=== PATIENT | female | born 1955 | race Caucasian/White ===

== ENCOUNTER → 2021-03-28 | Outpatient (CLI) | payer OTHER | LOC: SJCVCIMAG 07:32 | PROVIDERS: ATTEND Internal Medicine | DX: R00.0 Tachycardia, unspecified (principal); E11.9 Type 2 diabetes mellitus without complications; R06.00 Dyspnea, unspecified; I25.10 Atherosclerotic heart disease of native coronary artery without angina pectoris; R07.89 Other chest pain; I10 Essential (primary) hypertension; Z87.891 Personal history of nicotine dependence; Z72.89 Other problems related to lifestyle; Z79.899 Other long term (current) drug therapy; Z88.5 Allergy status to narcotic agent; Z98.61 Coronary angioplasty status ==

== ENCOUNTER → 2021-04-05 | Outpatient (CLI) | payer OTHER | LOC: SJCVC 14:43 | PROVIDERS: ATTEND Internal Medicine | DX: R06.00 Dyspnea, unspecified (principal); I25.10 Atherosclerotic heart disease of native coronary artery without angina pectoris; E11.9 Type 2 diabetes mellitus without complications; G47.33 Obstructive sleep apnea (adult) (pediatric); I10 Essential (primary) hypertension; E66.9 Obesity, unspecified; E03.9 Hypothyroidism, unspecified; Z95.5 Presence of coronary angioplasty implant and graft; Z88.5 Allergy status to narcotic agent; Z88.8 Allergy status to other drugs, medicaments and biological substances; Z79.82 Long term (current) use of aspirin; Z79.84 Long term (current) use of oral hypoglycemic drugs; Z79.899 Other long term (current) drug therapy; Z87.891 Personal history of nicotine dependence ==

== ENCOUNTER → 2021-04-12 | Outpatient (CLI) | payer OTHER | LOC: RAD 07:54 | PROVIDERS: ATTEND Internal Medicine | DX: J84.89 Other specified interstitial pulmonary diseases (principal); R06.00 Dyspnea, unspecified ==

== ENCOUNTER → 2021-04-26 | Outpatient (CLI) | payer OTHER | LOC: CAT 07:57 | PROVIDERS: ATTEND Internal Medicine | DX: J84.9 Interstitial pulmonary disease, unspecified (principal); R91.1 Solitary pulmonary nodule ==

== ENCOUNTER → 2021-06-09 | Outpatient (CLI) | payer OTHER ==
[~2021-06-09] VITALS: Ht 162.6 cm; Wt 93.9 kg
[~2021-06-09] MED LIST: ANORO ELLIPTA1 EACH INH; COZAAR 25 MG TA25 M1 PO; IBU-200200 MG PO; LEVO-T50 MCG PO; METFORMIN HCL500 MG PO; NITROSTAT0.4 M1 SUBLING; OMEGA-3 FISH1200 MG PO; OMEPRAZOLE40 MG PO; PRALUENT P150 MG/1 M SUBQ; SERTRALINE HCL100 MG PO; ST. JOSEPH ASPI81 MG PO; SUPER THERAVIT1 EACH PO; TOPROL XL100 MG PO; VITAMIN C500 M2 PO; VITAMIN D325 MC3 PO
[2021-06-09 10:05] VITALS: BP 147/74
--- NOTE | 2021-06-25 14:55 | CATHLAB ---
[facility] [place] [address] INVASIVE PROCEDURE REPORT Name: JAD ATKINS Room #: ALETHA LOYD Carlos#: [id number] Admission: 06/09/21 Attend Phys: Urban Palacios Discharge: Date of : 59 Report #: [id number] THIS REPORT FOR: cc: Gunjan Cedeno Christine L. DO Lammoglia, Francisco J. MD ~ APPROVED REPORT Study performed: 06/09/2021 10:14:19 Patient Details Patient Status: Out-Patient Room #: The patient is a 66 year-old female Event Personnel Urban Palacios Wood Carving Lathe Operator, Sharda Moore RN RN, Evie Lambert RTR, RUSTY Scrub, Kelley Arias RTR Monitor Procedures Performed Art Access - R femoral artery* Left Heart Cath w/or w/o Coronaries [id number] [facility] Hemostasis w/ Mynx 13901 Initial Mod Sed Same Phys/QHP Gr [id number] 22009 Mod Sed Same Phys/QHP [id number], supervision of conscious sedation Indication Positive stress test, Chest pain Procedure Narrative The Right Groin^ was infiltrated with 1% Lidocaine subcutaneous anesthesia. A PINNACLE 4FR Sheath #[id number] sheath was inserted into the RFA^. Coronary angiography was performed using coronary diagnostic catheters. The right coronary system was accessed and visualized with a JR4 catheter. The left coronary system was accessed and visualized with a JL4 catheter. The left ventricle was accessed and visualized with a ANGLED PIGTAIL catheter. Hemostasis was obtained with manual pressure following sheath removal without any complications. The patient tolerated the procedure well and there were no complications associated with the procedure. There was no hematoma. Intraoperative Conscious Sedation Sedation start time: 11:28 Case end Time: 11:55 [facility] [address] [place] [address] INVASIVE PROCEDURE REPORT Name: JAD ATKINS Room #: [facility] Carlos#: [id number] Admission: 06/09/21 Attend Phys: Urban Araujo Discharge: Date of : 59 Report #: [id number] Versed 2 mg Fluoro Time: 2.17 minutes Dose: DAP 2547.10 cGycm2 335 mGy Contrast Type and Amount: Omnipaque 45 ml Coronary Angiography The patient's coronary anatomy is right dominant. Diagnostic Cath Left Main Large-caliber vessel normal origin bifurcates left into descending left circumflex. Mild plaquing is noted no obstructive lesions are present. There is some proximal tapering noted of less than 30% LAD Moderate caliber type III vessel which courses in the interventricular sulcus. Before the origin of the first diagonal branches there is a stent that appears to have a 25 to 30% restenosis along its entire course. It is not flow-limiting. The vessel continues on giving rise to diagonal which is moderate in caliber with luminal irregularities of less than 30% noted. And LAD proper continues in the anterior to his ventricular sulcus tapering with moderate to mild irregularities bifurcating is a small bifurcating vessel in the posterior inferior wall of the left ventricle Diagonal 1 Small to moderate caliber vessel with irregularities present throughout its course less than 30% Circumflex Moderate caliber nondominant vessel gives rise early first marginal branch and then continues on the second marginal branch with there is a stent which appears to be widely patent. Beyond the stent there is irregularities of less than 30% but the first marginal branch is moderate in caliber with luminal irregularities noted which are not hemodynamically significant. The vessel and continues on circumflex proper posteriorly terminates posterior aspect of the heart OM1 Moderate caliber vessel with luminal irregularities noted no significant high-grade lesion OM2 Small caliber vessel with patent proximal stent noted but irregularities of less than 30% press Right Coronary Large-caliber dominant vessel of normal origin proceeds in the AV groove where there is a small RV marginal branch arising. The vessel continues posteriorly giving rise to the posterior lateral branch and posterior descending artery. No high-grade lesions are noted luminal irregularities are present. The whole proximal third of the proximal RCA has a stent which is widely patent without significant restenosis R PDA Small to moderate caliber vessel luminal irregularities no high-grade lesions are noted [address] [address] INVASIVE PROCEDURE REPORT Name: JAD ATKINS Room #: ALETHA Gonzalez#: [id number] Admission: 06/09/21 Attend Phys: Urban Araujo Discharge: Date of : 59 Report #: [id number] Left Ventriculography Left Ventriculography was not performed. Hemodynamics The aortic pressure is 126/73 mmHg with a mean of 82 mmHg. The left ventricular pressure is 151/6 mmHg with a mean of mmHg. The left ventricular end diastolic pressure is 13 mmHg. Conclusion 1. Coronary artery disease mild multivessel with patent stents 2. Normal hemodynamic Recommendations Cardiac Risk Reduction Program Medical Therapy <ELECTRONICALLY SIGNED> By: Urban Palacios MD 06/25/21 1454 1454 1454 Urban Palacios MD /INF
== END | disposition home or self-care (01) ==
LOC: CATH 08:35
PROVIDERS: ATTEND Internal Medicine
DX: R07.9 Chest pain, unspecified (principal); I25.10 Atherosclerotic heart disease of native coronary artery without angina pectoris; I10 Essential (primary) hypertension; R94.39 Abnormal result of other cardiovascular function study; E03.9 Hypothyroidism, unspecified; E11.9 Type 2 diabetes mellitus without complications; E66.9 Obesity, unspecified; Z98.890 Other specified postprocedural states; Z79.899 Other long term (current) drug therapy; Z87.891 Personal history of nicotine dependence; Z20.822 Contact with and (suspected) exposure to COVID-19; Z88.8 Allergy status to other drugs, medicaments and biological substances; Z82.49 Family history of ischemic heart disease and other diseases of the circulatory system